=== PATIENT | female | born 1985 | race African-American/Black ===

== ENCOUNTER 2022-08-22 12:42 | Emergency (ER) | payer OTHER, SELFPAY ==
[2022-08-22 12:56] VITALS: BP 106/70; PULSE 94; RESP 16; TEMP 36.6; O2SAT 100
--- NOTE | 2022-08-22 12:56 | ED.URI ---
HPI - URI/Sore Throat General Chief Complaint: Upper Respiratory Infection Stated Complaint: sore throat Time Seen by Provider: 08/22/22 12:56 Source: patient Mode of arrival: ambulatory Limitations: no limitations History of Present Illness HPI Narrative: 36 yo F presents with c/o sore throat for 5 days, getting progressively worse. Worse with swallowing Afebrile. Denies N/v/d. All systems reviewed and negative except as noted above. Related Data Allergies Allergy/AdvReac Type Severity Reaction Status Date / Time No Known Allergies Allergy Verified 02/07/19 15:37 Review of Systems Review of Systems: CONSTITUTIONAL: Denies fever, chills, or sweats. EYES: Denies visual changes, redness, or discharge. ENT: Denies rhinorrhea, congestion. Reports sore throat. Denies otalgia. CARDIOVASCULAR: Denies chest pain, palpitations, or edema. RESPIRATORY: Denies cough or dyspnea. GASTROINTESTINAL: Denies abdominal pain, nausea, vomiting, or diarrhea. GENITOURINARY: Denies dysuria or hematuria. SKIN: Denies rash or itching. MUSCULOSKELETAL: Denies back pain, joint pain, or myalgia. NEUROLOGIC: Denies headache, numbness, or weakness. PSYCHIATRIC: Denies anxiety or depression. All other systems reviewed are negative, except as documented in HPI. PMFSH Comments At time of signature, agree with nursing past medical, surgical, social and family history. There is no relevant family history pertinent to the presenting complaint. Exam Narrative: GENERAL: This is a well-nourished, well-developed patient, in no apparent distress. HEAD: normocephalic, atraumatic. EYES: PERRL. Sclera clear/white. Vision is grossly intact. EARS: External ears normal, auditory canals clear and without drainage, TMs normal without perforation. Hearing grossly intact. NOSE: External nose normal with no obvious nasal discharge, nares without redness, no rhinorrhea. THROAT: Mucous membranes moist, erythema, swelling, tonsil stones NECK: Neck supple, non-tender without lymphadenopathy, masses or thyromegaly. CARDIOVASCULAR: Regular rate and rhythm without murmurs, gallops, or rubs. RESPIRATORY: Clear to auscultation. Breath sounds equal bilaterally. No wheezes, rales, or rhonchi. SKIN: warm, Dry, intact with no suspicious lesions or rash, good texture and turgor. NEURO: awake, alert, and oriented to person, place and time. There were no obvious focal neurologic abnormalities. EXTREMITIES: No joint tenderness, effusion, or edema noted. Course Course Level of Care: Express Care Visit Vital Signs Vital signs: Vital Signs Temperature 36.6 C 08/22/22 12:56 Pulse Rate 94 08/22/22 12:56 Respiratory Rate 16 08/22/22 12:56 Blood Pressure 106/70 08/22/22 12:56 Pulse Oximetry 100 08/22/22 12:56 Temperature 36.6 C 08/22/22 12:56 Pulse Rate 94 08/22/22 12:56 Respiratory Rate 16 08/22/22 12:56 Blood Pressure 106/70 08/22/22 12:56 Pulse Oximetry 100 08/22/22 12:56 Reviewed MDM - URI/Sore Throat MDM Narrative Medical decision making narrative: Patient is aware of diagnosis, understands and agrees to treatment plan. Anticipatory guidance given. Patient agrees to follow-up as directed and is aware of reasons to seek care at the emergency department. Portions of this record may have been created with voice recognition software Negative rapid strep. Will treat patient with antibiotic due to exam findings and patient's symptoms. Differential Diagnosis Differential diagnosis: Likely pharyngitis Lab Data Labs: Strep Screen Presumptive Negative *(Reference Range: Negative)* Discharge Plan Discharge Clinical Impression: Acute pharyngitis, Tonsil stone Patient Disposition: Home, Self-Care Condition: Stable Instructions: Antibiotic Form, Pharyngitis (ED) Additional Instructions: Your strep test was negative today. Due to her symptoms and exam findings I am
== END 2022-08-22 13:08 | disposition home or self-care (01) ==
PROVIDERS: Emergency Provider Nurse Practitioner Family; PCP Family Medicine
DX: J02.9 Acute pharyngitis, unspecified (principal); J35.8 Other chronic diseases of tonsils and adenoids
CPT/HCPCS: 87081; 87880; 99203; G0463

== ENCOUNTER 2023-07-01 09:08 | Emergency (ER) | payer OTHER, SELFPAY ==
[2023-07-01 09:26] VITALS: BP 89/59; PULSE 99; RESP 16; TEMP 36.6; O2SAT 100
--- NOTE | 2023-07-01 09:29 | ED.URI ---
HPI - URI/Sore Throat General Chief Complaint: Upper Respiratory Infection Stated Complaint: FEVER/BODY ACHES Source: patient and RN notes reviewed Mode of arrival: ambulatory Limitations: no limitations History of Present Illness HPI Narrative: 37 y/o female presented for c/o body aches, fevers, and chills x3 days. 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 Reports fatigue and occasional mild cough but denies any other symptoms. Denies sick contacts. Covid negative x3 at home. MD elicited complaint: cough Related Data Home Medications Medication Instructions Recorded Confirmed No Home Medications 07/01/23 07/01/23 Allergies Allergy/AdvReac Type Severity Reaction Status Date / Time No Known Allergies Allergy Verified 07/01/23 09:15 Review of Systems Review of Systems: CONSTITUTIONAL: Endorses chills, sweats, fever EYES: Denies visual changes, redness, or discharge ENT: Denies rhinorrhea, congestion, sinus pain, otalgia, sore throat CARDIOVASCULAR: Denies chest pain, palpitations, edema RESPIRATORY: Reports mild cough, Denies dyspnea GASTROINTESTINAL: Denies abdominal pain, nausea, vomiting, diarrhea SKIN: Denies rash or itching MUSCULOSKELETAL: Denies myalgia PMFSH Past Medical History Medical History No pertinent past medical history Exam Narrative: GENERAL: well-appearing EYES: conjunctivae clear ENT: Mucous membranes moist. TM pearly ross with dull light reflex bilaterally; no tragal tenderness. Oropharynx not erythematous without lesions or exudate, no drooling, no hoarseness, no trismus, uvula midline. CHEST: Clear to auscultation, breath sounds equal. HEART: Regular rate and rhythm. No murmur heard. SKIN: Warm, dry, no rash. NEURO: Alert and oriented x3. PSYCH: Normal mood and affect Course Course Emergency Course: Patient is aware of diagnosis, understands and agrees to treatment plan. Anticipatory guidance given. Patient agrees to follow-up as directed and is aware of reasons to seek care at the emergency department. Portions of this record may have been created with voice recognition software Level of Care: Express Care Visit Vital Signs Vital signs: Vital Signs Temperature 98 F 07/01/23 09:26 Pulse Rate 99 07/01/23 09:26 Respiratory Rate 16 07/01/23 09:26 Blood Pressure 89/59 L 07/01/23 09:26 Pulse Oximetry 100 07/01/23 09:26 Temperature 98 F 07/01/23 09:26 Pulse Rate 99 07/01/23 09:26 Respiratory Rate 16 07/01/23 09:26 Blood Pressure 89/59 L 07/01/23 09:26 Pulse Oximetry 100 07/01/23 09:26 reviewed MDM - URI/Sore Throat MDM Narrative Medical decision making narrative: Negative flu and COVID. Results reviewed with patient. Discussed physical exam findings. Advised supportive measures and signs/symptoms to go to the ER. Pt is appropriate for outpt treatment and f/u. Differential Diagnosis Differential diagnosis: Likely upper respiratory infection, sinusitis, viral infection, bronchitis, influenza and pharyngitis Lab Data Labs: Influenza A Screen Negative Reference Range: Negative Influenza A Screen Negative Reference Range: Negative Influenza B Screen Negative Reference Range: Negative Influenza B Screen Negative Reference Range: Negative Discharge Plan Discharge Clinical Impression: Fever Patient Disposition: Home, Self-Care Condition: Stable Instructions: Antibiotic Form, Fever in Adults (ED), Viral Syndrome (ED) Additional Instructions: Flu and COVID results are negative. Recommend following general precautions: frequent handwashing, wear a m
== END 2023-07-01 09:55 | disposition home or self-care (01) ==
PROVIDERS: Emergency Provider Nurse Practitioner Family; PCP Family Medicine
DX: R50.9 Fever, unspecified (principal); Z20.822 Contact with and (suspected) exposure to COVID-19
CPT/HCPCS: 87426; 87804; 99213; C9803; G0463